=== PATIENT | male | born 1960 | race Caucasian/White ===

== ENCOUNTER 2024-01-24 05:13 | Day surgery (SDC) | payer BC ==
[2024-01-23 11:28] VITALS: BMI 25.3
[2024-01-24] MEDS ORDERED: BUPIVACAINE HCL/PF 0.25% (2.5MG/ML) 10 ML VIAL ONE (07:30)
[2024-01-24] MEDS ORDERED: ROCURONIUM BROMIDE 50 MG/5 ML SYRINGE ONE ×2 (07:48→09:50)
[2024-01-24] MEDS ORDERED: MIDAZOLAM HCL 2 MG/2 ML SINGLE DOSE VIAL ONE (07:48)
[2024-01-24] MEDS ORDERED: PROPOFOL 40 ML ONE (07:48)
[2024-01-24] MEDS ORDERED: DEXAMETHASONE SOD PHOSPHATE 10 MG/1 ML VIAL ONE (07:51)
[2024-01-24] MEDS ORDERED: DEXMEDETOMIDINE HCL 200 MCG/2 ML IVPB ONE (07:51)
[2024-01-24] MEDS: ceFAZolin SODIUM 1 GM VIAL IVPB ONE (09:00)
[2024-01-24] MEDS ORDERED: PROPOFOL 20 ML ONE ×2 (09:03→09:59)
[2024-01-24] MEDS: BUPIVACAINE HCL/PF 0.25% (2.5MG/ML) 10 ML VIAL IJ ONE (09:17)
[2024-01-24] MEDS ORDERED: SUGAMMADEX SODIUM 200 MG/2 ML VIAL ONE (10:34)
[2024-01-24] MEDS ORDERED: ONDANSETRON 4 MG/2 ML VIAL IVPUSH PRN (10:56)
[2024-01-24] MEDS: LACTATED RINGERS SOLUTION 1,000 ML IV SCH (11:27)
[2024-01-24 12:32] VITALS: RESP 16; TEMP 97
[2024-01-24 15:06] VITALS: BP 107/70; PULSE 70
== END 2024-01-24 15:27 | disposition home or self-care (01) ==
LOC: JASU-SURG 05:13
PROVIDERS: ATTEND Surgery
PROC: 8E0W4CZ Robotic Assisted Procedure of Trunk Region, Percutaneous Endoscopic Approach (ICD-10-PCS; 2024-01-24)
PROC: 0YU54JZ Supplement Right Inguinal Region with Synthetic Substitute, Percutaneous Endoscopic Approach (ICD-10-PCS; principal; 2024-01-24 08:00)
DX: K40.90 Unilateral inguinal hernia, without obstruction or gangrene, not specified as recurrent (principal)
CPT/HCPCS: 49650; S2900; 86850; 86900; 86901; 94760; C1781; J1100